=== PATIENT | female | born 1995 | race Caucasian/White ===

== ENCOUNTER 2018-07-09 21:06 | Emergency (ER) | payer MEDICAID ==
--- NOTE | 2018-07-09 22:42 | EDPHY ---
General Time Seen by Provider: 07/09/18 21:30 Narrative: CLINICAL IMPRESSION: Right ankle sprain ASSESSMENT/PLAN: 23-year-old female presents to the emergency department after injuring her ankle while hiking today. Patient has obvious swelling and bruising to the lateral aspect of the right ankle, no open wounds, no proximal leg or knee pain. X-rays read by Radiology as negative for acute fracture and dislocation. Distal neurovascular exam is intact. Patient was placed in an ankle stirrup splint, rice treatment reviewed, orthopedic referral given, warning signs return to ED sooner discussed discharge. DIFFERENTIAL DX: Differential includes but not limited to acute fracture, strain/sprain, joint dislocation, soft tissue contusion ED PROCEDURES: Procedure: Splint placement. A Velcro ankle stirrup splint was applied to right ankle by robotics technician, supervised by myself. After application of the splint I returned and re-examined the patient. The splint was adequately immobilizing the joint and distal to the splint the patient's circulation and sensation was intact. ED COURSE: 10:30 p.m.: X-rays reviewed with the patient. No evidence of acute fracture. Will treat for ankle sprain CHIEF COMPLAINT: Right ankle pain HPI: 23-year-old female presents to the emergency department with acute right ankle pain. She reports she was hiking at [facility] today when she tripped and fell. There was a bystander on the trail that taped to the ankle and she was able to get out with the help with friends. She reports no upper leg or knee pain. No prior ankle injury or surgery. No hardware placement. No numbness or loss of sensation. PAST MEDICAL HISTORY: No significant past medical or orthopedic surgery REVIEW OF SYSTEMS: All other systems negative Constitutional: No fever, no chills Musculoskeletal: No deformity, + joint pain Skin: No rashes, color change or open wounds. Neurological: No sensory loss or weakness. PHYSICAL EXAM: General Appearance: Alert, oriented, appropriate for age, cooperative, NAD, well hydrated, non-toxic appearing, VSS, no hypoxia. Neurological: Alert and oriented x 3, normal sensation of extremities Skin: Warm, dry, no rashes, no nodules on palpation. Musculoskeletal: Obvious swelling and contusion noted to right lateral malleolus. No bony point tenderness. No open wounds. No proximal joint injury. Distal neurovascular exam intact. MEDICAL DECISION MAKING: Patient was seen independently. Secondary supervising physician at time of evaluation was Dr. Crum. Diagnosis: Right ankle sprain. New, requires workup Summary: See assessment and plan for summary of ED visit Independent visualization of images, tracing, or specimens yes. Patient Progress: Stable for discharge. - Diagnostics Imaging Results: Imaging Impressions Ankle X-Ray 07/09/18 21:15 Impression: No acute osseous findings. - History Smoking Status: Never smoked - Objective Vital Signs: Initial Vital Signs Temperature (C) 36.8 C 07/09/18 21:06 Heart Rate 105 H 07/09/18 21:06 Respiratory Rate 17 07/09/18 21:06 Blood Pressure 125/85 H 07/09/18 21:06 O2 Sat (%) 94 07/09/18 21:06 O2 Delivery Mode Room Air Allergies/Adverse Reactions: No Known Allergies Allergy (Unverified 07/09/18 21:09) Home Medications: Medication Instructions Recorded NK [No Known Home Meds] 07/09/18 Departure - Departure Disposition: Home, Routine, Self-Care Clinical Impression: Sprain of right ankle Qualifiers: Encounter type: initial encounter Involved ligament of ankle: tibiofibular ligament Qualified Code(s): S93.431A - Sprain of tibiofibular ligament of right ankle, initial encounter Condition: Good Instructions: Ankle Sprain (DC) Additional Instructions: DISCHARGE INSTRUCTIONS FROM YOUR DOCTOR Thank you for visiting our emergency department today. You were treated by a physician doctor assistant today and your case was reviewed with our ED Attending physician. Please keep in mind that discharge from the emergency department does not mean that there is nothing wrong - it simply means that we have not identified an emergency condition that requires further evaluation or treatment in the hospital. You should always plan to follow up with primary care for re- evaluation of your condition in the next 2-3 days. If you have been referred to a specialist, please call as soon as possible (today or tomorrow) to schedule your follow up appointment at the appropriate time. X-RAYS OF THE ANKLE SHOW NO EVIDENCE OF FRACTURE. REST AND ELEVATE THE AFFECTED EXTREMITY MUCH POSSIBLE. ICE THE AFFECTED AREAS 20 MIN ON, 20 MIN OFF FOR THE NEXT SEVERAL DAYS. WEAR THE SPLINT FOR COMFORT. FOLLOW UP WITH ORTHO IF PAIN IS NOT IMPROVING AFTER 4-5 DAYS. RETURN TO ED FOR SEVERE PAIN, LOSS OF SENSATION TO FOOT OR TOES, FEVER OR ANY OTHER CONCERN. People present with illnesses and injuries in different ways, and it is always possible that we have missed something. You may always return for re-evaluation if symptoms worsen or if they are not improving or if you develop new/different symptoms. Again, thank you for choosing our emergency department. We hope that you feel better. Referrals: NONE *PRIMARY CARE P,. [Primary Care Provider] - As per Instructions Manuelito Poon MD [Medical Doctor] - 5-7 days, call for appt.
[2018-07-09 22:58] VITALS: BP 98/42
== END 2018-07-09 22:59 | disposition home or self-care (01) ==
DX: S93.431A Sprain of tibiofibular ligament of right ankle, initial encounter (principal); W01.0XXA Fall on same level from slipping, tripping and stumbling without subsequent striking against object, initial encounter; Y93.01 Activity, walking, marching and hiking; Y92.828 Other wilderness area as the place of occurrence of the external cause
CPT/HCPCS: L4350